=== PATIENT | female | born 1965 | race African-American/Black ===

== ENCOUNTER 2017-01-11 04:44 | Emergency (ER) | payer OTHER ==
[~2017-01-11] VITALS: Ht 157.5 cm; Wt 56.8 kg
[~2017-01-11 04:44] MED LIST: AMLO5TAB4 PO; LISI40TA4 PO
[2017-01-11] MEDS ORDERED: MORPHINE SULFATE 4 MG/ML CPJ (NOT FOR IM USE) IV STA (05:04)
[2017-01-11] MEDS ORDERED: ONDANSETRON HCL 4MG/2ML VIAL IV STA (05:04)
[2017-01-11] MEDS ORDERED: SODIUM CHLORIDE 0.9% 1,000 ML IV ONE (05:04)
[2017-01-11] MEDS ORDERED: ASPIRIN 81MG TABLET PO ONE (05:15)
[2017-01-11] MEDS ORDERED: NITROGLYCERIN OINT 1GM/INCH UDPKT TD ONE (05:15)
[2017-01-11] MEDS ORDERED: HYDRALAZINE 20MG/ML VIAL IV SCH ×2 (05:15→09:00)
[2017-01-11] MEDS ORDERED: LABETALOL HCL 20MG/4ML CARPUJECT IV ONE (05:15)
[2017-01-11 05:35] LABS: BASOPHILS % 0.8 % (0.0-2.0); EOSINOPHILS % 4.5 % (0.0-5.0); HEMATOCRIT. 40.7 % (36.0-48.0); HEMOGLOBIN. 13.7 g/dL (12.0-16.0); LYMPHOCYTES % 30.9 % (20.0-50.0); MEAN CORPUSCULAR HEMOGLOBIN 30.4 pg (28.0-32.0); MEAN PLATELET VOLUME 7.8 fl (7.4-10.4); NEUTROPHILS % 56.8 % (40.0-76.0); PLATELET 333 x1000/uL (130-400); RED BLOOD CELL COUNT 4.52 mill/uL (4.2-5.4); RED CELL DISTRIBUTION WIDTH 15.3 % (11.6-14.6)
[2017-01-11 05:50] LABS: INR 0.9; PROTHROMBIN TIME 9.6 sec (9.4-11.6)
[2017-01-11 05:53] LABS: CARBON DIOXIDE 28 mEq/L (21-32); CHLORIDE 108 mEq/L (98-107); ETHANOL BLOOD < 10 mg/dL; TROPONIN I < 0.02 ng/mL (0.00-0.04)
[2017-01-11] MEDS ORDERED: LABETALOL 5MG/ML SYR 20 MG/4 ML SYRINGE IV SCH (06:22)
[2017-01-11] MEDS ORDERED: NICARDIPINE 40MG/200ML PREMIX 200 ML IV PRN (06:30)
[2017-01-11] MEDS ORDERED: MORPHINE SULFATE 4 MG/ML CPJ (NOT FOR IM USE) IV ONE (06:30)
[2017-01-11] MEDS ORDERED: HYDRALAZINE 20MG/ML VIAL IV ONE (06:30)
[2017-01-11] MEDS ORDERED: ONDANSETRON HCL 4MG/2ML VIAL IV ONE (06:30)
[2017-01-11 07:05] LABS: CLARITY URINE CLEAR (CLEAR); COLOR URINE YELLOW (YELLOW); GLUCOSE URINE NEGATIVE (NEGATIVE); KETONES URINE NEGATIVE (NEGATIVE); LEUKOCYTE ESTERASE URINE NEGATIVE (NEGATIVE); NITRITE URINE NEGATIVE (NEGATIVE); OCCULT BLOOD URINE NEGATIVE (NEGATIVE); PH URINE 6.5 (4.5-8.0); PROTEIN URINE NEGATIVE (NEGATIVE); UROBILINOGEN URINE 0.2 E.U./dL (0.2-1.0)
[2017-01-11 07:19] LABS: *AMPHETAMINES SCREEN URINE NEGATIVE (NEGATIVE); *BARBITURATES SCREEN URINE NEGATIVE (NEGATIVE); *BENZODIAZEPINES SCREEN URINE NEGATIVE (NEGATIVE); *COCAINE SCREEN URINE NEGATIVE (NEGATIVE); CANNABINOID URINE SCREEN PRESUMTIVE POSITIVE (NEGATIVE); METHADONE URINE SCREEN NEGATIVE (NEGATIVE); OPIATES URINE SCREEN PRESUMTIVE POSITIVE (NEGATIVE); PHENCYCLIDINE URINE SCREEN NEGATIVE (NEGATIVE)
[2017-01-11] MEDS ORDERED: METOCLOPRAMIDE HCL 10MG/2ML VIAL IV ONE (07:30)
[2017-01-11 09:39] VITALS: BP 149/76
[2017-01-11] MEDS ORDERED: SODIUM CHLORIDE 0.9% 10ML VIAL ONE (15:04)
[2017-01-11] MEDS ORDERED: IOHEXOL-350 100 ML BOTTLE ONE (15:04)
== END 2017-01-11 09:51 | disposition short-term general hospital (02) ==
LOC: ER 04:58 → EDBEDREQ 05:16 → CANRESERV 07:47 → ENRESERV 07:47 → ER 09:51 → CANBEDREQ 16:24
DX: I60.9 Nontraumatic subarachnoid hemorrhage, unspecified (principal); R07.9 Chest pain, unspecified; J44.9 Chronic obstructive pulmonary disease, unspecified; I11.9 Hypertensive heart disease without heart failure; I25.2 Old myocardial infarction; F17.210 Nicotine dependence, cigarettes, uncomplicated
CPT/HCPCS: 36415; 70450; 70496; 71010; 80053; 80305; 81003; 83605; 83690; 83880; 84484; 85025; 85610; 93005; 96361; 96374; 96375; 96376; 99285; A4216; G0482; J0360; J2270; J2405; J2765; J7030; Q9967; Z7610; J3490

== ENCOUNTER 2018-02-11 14:06 | Inpatient (IN) | payer OTHER ==
[~2018-02-11] VITALS: Ht 157.5 cm; Wt 58.5 kg
[2018-02-11] MEDS ORDERED: ONDANSETRON HCL 4MG/2ML INJ IV ONE (14:45)
[2018-02-11] MEDS ORDERED: ENALAPRIL 2.5MG/2ML VIAL 2ML IV ONE (14:45)
[2018-02-11] MEDS ORDERED: FENTANYL CITRATE/PF 50MCG/ML 2ML VIAL IV ONE (14:45)
[2018-02-11 15:54] LABS: BASOPHILS % 0.6 % (0.0-2.0); EOSINOPHILS % 4.2 % (0.0-5.0); HEMOGLOBIN. 14.8 g/dL (12.0-16.0); LYMPHOCYTES % 19.9 % (20.0-50.0); MEAN CORPUSCULAR HEMOGLOBIN 30.5 pg (28.0-32.0); MEAN CORPUSCULAR VOLUME 90.9 fL (81.0-99.0); MONOCYTES % 10.5 % (2.0-8.0); NEUTROPHILS % 64.8 % (40.0-76.0); PLATELET 363 x1000/uL (130-400); RED BLOOD CELL COUNT 4.84 mill/uL (4.2-5.4); RED CELL DISTRIBUTION WIDTH 14.9 % (11.6-14.6)
[2018-02-11 16:00] LABS: PROTHROMBIN TIME 10.5 sec (9.1-11.1)
[2018-02-11 16:06] LABS: CHLORIDE 108 mEq/L (98-107)
[2018-02-11 16:18] LABS: CREATINE KINASE 84 IU/L (26-192); ETHANOL BLOOD < 10 mg/dL; LDL CHOLESTEROL 99 mg/dL (5-100)
[2018-02-11] MEDS ORDERED: AMLODIPINE 10MG TABLET PO ONE (17:45)
[2018-02-11] MEDS ORDERED: IOHEXOL-350 100 ML BOTTLE ONE (17:49)
[2018-02-11] MEDS ORDERED: LORAZEPAM 0.5MG TABLET PO PRN (18:30)
[2018-02-11] MEDS ORDERED: HYDROCODONE/ACETAMINOPHEN 10/325MG TABLET PO PRN (18:30)
[2018-02-11] MEDS ORDERED: CLONIDINE 0.1MG TABLET PO PRN (18:30)
[2018-02-11] MEDS ORDERED: ACETAMINOPHEN 650MG SUPP PR PRN (18:30)
[2018-02-11] MEDS ORDERED: ACETAMINOPHEN 325MG TABLET PO PRN (18:30)
[2018-02-11] MEDS ORDERED: HYDROCODONE/ACETAMINOPHEN 5/325MG TABLET PO PRN (18:30)
[2018-02-11] MEDS ORDERED: ACETAMINOPHEN 650MG/20.3ML UDC GT PRN (18:30)
[2018-02-11] MEDS ORDERED: ONDANSETRON HCL 4MG/2ML INJ IV PRN (18:30)
[2018-02-12 01:16] LABS: CREATINE KINASE 87 IU/L (26-192)
[2018-02-12 01:17] LABS: CREATINE KINASE MB FRACTION < 1.0 ng/mL (0.5-3.6)
[2018-02-12 03:00] VITALS: BP 165/85
[2018-02-12] MEDS ORDERED: SIMV20TA6 PO (04:36)
[2018-02-12] MEDS ORDERED: DIPH25TA23 MT (04:36)
[2018-02-12] MEDS ORDERED: CLON0.1T14 PO (04:36)
[2018-02-12] MEDS ORDERED: ASPI-1159 PO (04:36)
[2018-02-12 08:42] VITALS: BP 135/83
[2018-02-12] MEDS ORDERED: AMLODIPINE 5MG TABLET PO SCH (09:00)
[2018-02-12] MEDS ORDERED: LISINOPRIL 40MG TABLET PO SCH (09:00)
[2018-02-12 11:25] LABS: BASOPHILS % 0.6 % (0.0-2.0); EOSINOPHILS % 6.3 % (0.0-5.0); HEMATOCRIT. 44.2 % (36.0-48.0); HEMOGLOBIN. 14.9 g/dL (12.0-16.0); LYMPHOCYTES % 24.6 % (20.0-50.0); MEAN CORPUSCULAR HEMOGLOBIN 30.1 pg (28.0-32.0); MEAN CORPUSCULAR VOLUME 89.4 fL (81.0-99.0); MEAN PLATELET VOLUME 7.8 fl (7.4-10.4); MONOCYTES % 12.5 % (2.0-8.0); PLATELET 336 x1000/uL (130-400); RED BLOOD CELL COUNT 4.94 mill/uL (4.2-5.4); RED CELL DISTRIBUTION WIDTH 14.8 % (11.6-14.6)
[2018-02-12 12:19] LABS: CHLORIDE 105 mEq/L (98-107)
[2018-02-12 12:22] VITALS: BP 131/84
[2018-02-12 12:24] LABS: CREATINE KINASE 83 IU/L (26-192); CREATINE KINASE MB FRACTION < 1.0 ng/mL (0.5-3.6)
[2018-02-12 12:38] LABS: HDL CHOLESTEROL 52 mg/dL (40-59); LDL CHOLESTEROL 106 mg/dL (5-100); T4 FREE 0.99 ng/dL (0.76-1.46)
[2018-02-12] MEDS ORDERED: SODIUM CHLORIDE 0.45% 1,000 ML IV SCH (14:30)
[2018-02-12 16:16] LABS: CLARITY URINE CLEAR (CLEAR); COLOR URINE YELLOW (YELLOW); KETONES URINE TRACE (NEGATIVE); LEUKOCYTE ESTERASE URINE NEGATIVE (NEGATIVE); NITRITE URINE NEGATIVE (NEGATIVE); OCCULT BLOOD URINE 1+ (NEGATIVE); PROTEIN URINE TRACE (NEGATIVE); SPECIFIC GRAVITY URINE 1.018 (1.005-1.030); UROBILINOGEN URINE 0.2 E.U./dL (0.2-1.0)
[2018-02-12 16:31] LABS: CANNABINOID URINE SCREEN PRESUMTIVE POSITIVE (NEGATIVE); METHADONE URINE SCREEN NEGATIVE (NEGATIVE); OPIATES URINE SCREEN NEGATIVE (NEGATIVE); PHENCYCLIDINE URINE SCREEN NEGATIVE (NEGATIVE)
[2018-02-12 16:32] LABS: *AMPHETAMINES SCREEN URINE NEGATIVE (NEGATIVE); *BARBITURATES SCREEN URINE NEGATIVE (NEGATIVE); *BENZODIAZEPINES SCREEN URINE NEGATIVE (NEGATIVE); *COCAINE SCREEN URINE NEGATIVE (NEGATIVE)
[2018-02-12 16:46] VITALS: BP 126/74
[2018-02-12 20:00] VITALS: BP 120/64
[2018-02-12 20:14] VITALS: BP 120/64
== END 2018-02-12 21:27 | disposition short-term general hospital (02) | DRG 199 ==
LOC: ER 14:06 → 6WST 17:33 → EDBEDREQSVC 17:36 → EDBEDREQ 17:36 → EDBEDREQTM 17:36 → ENRESERV 02-12 01:23 → EDBEDREQ 02-12 02:30
PROVIDERS: ADMIT Internal Medicine; ATTEND Internal Medicine
DX: I16.0 Hypertensive urgency (principal); I67.1 Cerebral aneurysm, nonruptured; K85.90 Acute pancreatitis without necrosis or infection, unspecified; G43.909 Migraine, unspecified, not intractable, without status migrainosus; E78.5 Hyperlipidemia, unspecified; I48.91 Unspecified atrial fibrillation; J44.9 Chronic obstructive pulmonary disease, unspecified; I10 Essential (primary) hypertension; R19.7 Diarrhea, unspecified; Z83.3 Family history of diabetes mellitus; Z87.891 Personal history of nicotine dependence; Z79.899 Other long term (current) drug therapy; Z79.82 Long term (current) use of aspirin; Z88.6 Allergy status to analgesic agent; Z80.8 Family history of malignant neoplasm of other organs or systems
CPT/HCPCS: 36415; 70496; 71045; 80061; 80305; 82550; 82553; 83721; 83880; 84439; 84443; 84481; 84484; 92610; 93005; 93970; 96374; 96375; 97161; 97166; 99291; G0482; J2405; J3010; J3490; Q9967

== ENCOUNTER 2019-06-18 17:22 | Emergency (ER) | payer OTHER ==
[~2019-06-18] VITALS: Ht 165.1 cm; Wt 65.0 kg
[2019-06-18 17:25] VITALS: BP 169/93
== END 2019-06-18 20:24 | disposition left against medical advice (07) ==
LOC: ER 17:22
DX: R51 Headache (principal); Z53.21 Procedure and treatment not carried out due to patient leaving prior to being seen by health care provider